=== PATIENT | female | born 1975 | race Caucasian/White ===

== ENCOUNTER 2018-01-13 08:40 | Day surgery (SDC) | payer BC, MEDICAID ==
[~2018-01-13] VITALS: Ht 160 cm; Wt 82.7 kg
[2018-01-13] MEDS ORDERED: IBUP200C5 PO (10:51)
[2018-01-13] MEDS ORDERED: COLC0.6T47 PO (10:51)
[2018-01-13] MEDS ORDERED: ESTR0.5T PO (10:51)
[2018-01-13] MEDS ORDERED: ALPR-475 PO (10:51)
[2018-01-13] MEDS ORDERED: HYDR-3245 PO (10:51)
[2018-01-13] MEDS ORDERED: NORT10CA PO (10:51)
[2018-01-13] MEDS ORDERED: NITR0.4T28 SL (10:51)
[2018-01-13] MEDS ORDERED: ESOM40CA PO (10:51)
[2018-01-13 11:11] VITALS: BP 126/88
[2018-01-13] MEDS ORDERED: MIDAZOLAM 1 MG/ML, 2ML ONE ×3 (13:13→13:33)
[2018-01-13] MEDS ORDERED: VERAPAMIL 2.5 MG/ML, 2ML ONE (13:13)
[2018-01-13] MEDS ORDERED: LIDOCAINE 2%, 20ML ONE (13:13)
[2018-01-13] MEDS ORDERED: HEPARIN 1,000 UNITS/ML, 10ML ONE (13:13)
[2018-01-13] MEDS ORDERED: DIPHENHYDRAMINE 50 MG/ML, 1ML ONE (13:13)
== END 2018-01-13 16:17 ==
LOC: CACL 08:40
PROVIDERS: ATTEND Internal Medicine Cardiovascular Disease
DX: R07.89 Other chest pain (principal); F41.9 Anxiety disorder, unspecified; K21.9 Gastro-esophageal reflux disease without esophagitis; G47.33 Obstructive sleep apnea (adult) (pediatric); D64.9 Anemia, unspecified; Z88.8 Allergy status to other drugs, medicaments and biological substances; Z88.6 Allergy status to analgesic agent; Z88.1 Allergy status to other antibiotic agents; Z91.030 Bee allergy status; Z98.890 Other specified postprocedural states; Z90.49 Acquired absence of other specified parts of digestive tract; Z90.710 Acquired absence of both cervix and uterus
CPT/HCPCS: 93005; 93458; 99156; C1894; J1200; J1644; J2250; J3490; Q9967